=== PATIENT | male | born 1975 | race Caucasian/White ===

== ENCOUNTER 2019-03-23 11:28 | Emergency (ER) | payer BC ==
[~2019-03-23] VITALS: Ht 157.5 cm; Wt 64.3 kg
[2019-03-23 11:32] VITALS: Ht 157.5 cm; Wt 64.3 kg
[2019-03-23] MEDS ORDERED: KETOROLAC 60 MG INJ IM STA (12:15)
--- NOTE | 2019-03-23 12:24 | ERD ---
ER Documentation Chief Complaint Chief Complaint right leg numbness since this morning; had leg cramps last night HPI Patient is a 43 years old male with past medical history of diabetes mellitus type 2 presenting to the clinic for right calf tenderness since yesterday night. Patient reports of right hamstring and gluteal numbness since today morning. Patient admits to contacting his PCP who recommended ER visit. Patient rates his pain 11/10 during cramping episode that is sharp that does not radiate. Patient states that right now his pain is rated 6/10 and denies taking any OTC medication. ROS All systems reviewed and are negative except as per history of present illness. Medications Home Meds Active Scripts Ibuprofen* (Motrin*) 800 Mg Tab, 800 MG PO Q6, #30 TAB Prov:SHANNEN HAQ PA-C 03/23/19 PMhx/Soc DM II Medical and Surgical Hx: pt denies Surgical Hx History of Surgery: No Anesthesia Reaction: No Hx Neurological Disorder: No Hx Respiratory Disorders: No Hx Cardiac Disorders: No Hx Psychiatric Problems: No Hx Miscellaneous Medical Probl: No Hx Alcohol Use: No FmHx Family History: No diabetes, No coronary disease, No other Physical Exam Vitals Vital Signs Date Temp Pulse Resp B/P (MAP) Pulse Ox O2 O2 Flow FiO2 Time Delivery Rate 03/23/19 99.7 108 24 148/92 97 11:32 (110) Physical Exam Const: No acute distress Head: Atraumatic Eyes: Normal Conjunctiva Resp: Clear to auscultation bilaterally Cardio: Regular rate and rhythm, no murmurs Neur: Awake and alert Psych: Normal Mood and Affect Right lower extremity Exam: Positive Hyde's test. Mild warm to touch on calf region. No obvious signs of swelling. 2+ Pedal/Dorsalis/femoral pulse. Neurovascular exam intact. Results 24 hrs Current Medications Medications Dose Sig/Lee Start Time Status Last (Trade) Ordered Route PRN Stop Time Admin Dose Reason Admin Ketorolac 60 mg ONCE STAT 03/23/19 DC 03/23/19 Tromethamine IM 12:15 12:38 (Toradol) 03/23/19 12:18 Procedures/MDM Patient was seen and evaluated for right calf pain with right hamstring and gluteal numbness. Right Lower Extremity venous ultrasound showed no evidence of DVT, otherwise unremarkable imaging. No further workup required. Patient was advised about possible sciatica. Patient is stable and ready for discharge. Patient was advised to f/u with PCP. Departure Diagnosis: Primary Impression: Pain of left leg Condition: Stable Patient Instructions: Possible Causes of Low Back or Leg Pain Referrals: [facility] Additional Instructions: Patient advised to return to the ED immediately for new or worsening symptoms. Patient advised to follow up with primary care provider in the next 24-48 hours. Patient verbalized understanding and agrees with treatment plan and course of action. If patient has no primary care they may follow up with [facility] [address] [place] [id number] or [facility] [id number] [place] [address] or [facility] [address] [place] [address] SHANNEN HAQ PA-C Mar 23, 2019 12:24
[2019-03-23] MEDS ORDERED: IBUP800T48 PO (14:06)
[2019-03-23 14:14] VITALS: BP 139/84; PULSE 91; RESP 20
== END 2019-03-23 14:17 | disposition home or self-care (01) ==
LOC: FTE 11:28
DX: M79.604 Pain in right leg (principal)
CPT/HCPCS: 93971; 96372; 99285; J1885